=== PATIENT | male | born 2000 | race Hispanic/Latino ===

== ENCOUNTER 2022-06-02 23:34 | Emergency (ER) | payer BC ==
[2022-06-03] MEDS ORDERED: Ondansetron ODT 4 MG TAB ONE (00:18)
[2022-06-03] MEDS ORDERED: Ibuprofen 200 MG TAB ONE (00:18)
[2022-06-03 01:02] LABS: SARS-CoV-2 NAA Rapid Test Not Detected (NotDetected)
== END 2022-06-03 01:53 | disposition short-term general hospital (02) ==
LOC: ERS 23:34
DX: B34.9 Viral infection, unspecified (principal); Z20.822 Contact with and (suspected) exposure to COVID-19; I10 Essential (primary) hypertension
CPT/HCPCS: 99284; Q0162